=== PATIENT | male | born 1955 | race Caucasian/White ===

== ENCOUNTER 2016-07-22 03:26 | Inpatient (IN) | payer SELFPAY ==
[2016-07-22] VITALS (37 sets, daily range): BP systolic 130–196; BP diastolic 55–116; PULSE 80–119; RESP 18–32; TEMP 97.5–103; O2SAT 92–100
[~2016-07-22] VITALS: Ht 195.6 cm; Wt 154.2 kg
[2016-07-22] MEDS ORDERED: NITROGLYCERIN-DEXTROSE INJ 250 ML IV ONE (03:30)
[2016-07-22] MEDS ORDERED: SODIUM CHLORIDE 0.9% FLUSH 10 ML FLUSH IVF PRN (03:30)
[2016-07-22 03:53] LABS: AUTOMATED NEUTROPHIL # 14.3 TH/MM3 (1.8-7.7); BASOPHIL % 0.2 % (0.0-2.0); EOSINOPHIL # 0.1 TH/MM3 (0-0.4); EOSINOPHIL % 0.6 % (0.0-4.0); HEMO FLAGS DIFF FINAL; LYMPH % 6.2 % (9.0-44.0); MEAN CELL VOLUME 82.9 FL (80.0-100.0); MEAN CORPUSCULAR HEMOGLOBIN 26.2 PG (27.0-34.0); MEAN CORPUSCULAR HGB CONC 31.6 % (32.0-36.0); MONO % 4.5 % (0.0-8.0); NEUT % 88.5 % (16.0-70.0); PLATELET COUNT 182 TH/MM3 (150-450); RED BLOOD COUNT 4.83 MIL/MM3 (4.50-5.90); RED CELL DISTRIBUTION WIDTH 17.9 % (11.6-17.2); WHITE BLOOD COUNT 16.2 TH/MM3 (4.0-11.0)
[2016-07-22 04:07] LABS: ALT (GPT) 26 U/L (12-78); ANION GAP 10 MEQ/L (5-15); AST (GOT) 23 U/L (15-37); BICARBONATE 24.9 MEQ/L (21.0-32.0); BLOOD UREA NITROGEN 15 MG/DL (7-18); CHLORIDE 107 MEQ/L (98-107); GLOMERULAR FILTRATION RATE 60 ML/MIN (>89); MAGNESIUM 1.9 MG/DL (1.5-2.5); POTASSIUM 3.8 MEQ/L (3.5-5.1); SODIUM (NA) 142 MEQ/L (136-145)
[2016-07-22 04:10] LABS: APTT (PATIENT) 28.2 SEC (24.3-30.1); INTERNATIONAL NORMALIZED RATIO 1.1 RATIO; PROTHROMBIN TIME - PATIENT 11.7 SEC (9.8-11.6)
[2016-07-22 04:11] LABS: ALKALINE PHOSPHATASE 90 U/L (45-117); CREATINE KINASE 158 U/L (39-308); TOTAL BILIRUBIN ADULT 0.5 MG/DL (0.2-1.0)
[2016-07-22] MEDS ORDERED: cefTRIAXone INJ 1,000 MG in SODIUM CHLORIDE 0.9% INJ 100 ML IV ONE (04:15)
[2016-07-22] MEDS ORDERED: ACETAMINOPHEN 325 MG TAB PO ONE (04:15)
[2016-07-22] MEDS ORDERED: AZITHROMYCIN INJ 500 MG in SODIUM CHLOR 0.9% 250 ML INJ 250 ML IV ONE (04:15)
--- NOTE | 2016-07-22 04:20 | RADRPT ---
EXAM DATE/TIME: 07/22/2016 03:42 [place] COMPARISON: No previous studies available for comparison. INDICATIONS : Short of breath. MEDICAL HISTORY : None. SURGICAL HISTORY : None. ENCOUNTER: Initial ACUITY: 1 day PAIN SCORE: 6/10 LOCATION: Bilateral chest FINDINGS: Heart size enlarged. There is some vascular indistinctness and interstitial prominence which may repr esent mild interstitial edema. There is no pleural effusion. No pneumothorax. CONCLUSION: 1. Cardiomegaly with questionable early changes of pulmonary edema. Yvan Bower MD on July 22, 2016 at 4:15 Board Certified Radiologist. This report was verified electronically.
[2016-07-22 04:23] LABS: CKMB 1.3 NG/ML (0.5-3.6)
--- NOTE | 2016-07-22 04:39 | PD ---
HPI Chief Complaint: Respiratory Distress Time Seen by Provider: 03:29 Travel History International Travel<30 days: No Contact w/Intl Traveler<30days: No Traveled to known affect area: No History of Present Illness HPI 61 yo M arrives by EMS due to shortness of breath. he's also had bilateral lower extremity edema. On scene his O2 sat was 80% on room air. EMS applied BiPAP and it increased to the mid 90s. Rales are heard on scene. Heart rate was about 120. Blood pressure was approximately 220/100. Sublingual nitroglycerin was given along with Lasix 100 mg en route. Patient carries no history of CHF to his knowledge. Pt denies CP. PFSH Past Medical History Immunizations Current: Yes Tetanus Vaccination: Unknown Influenza Vaccination: No Social History Alcohol Use: No Tobacco Use: No Substance Use: No Allergies-Medications (Allergen,Severity, Reaction): Coded Allergies: No Known Allergies (Unverified , 07/22/16) Reported Meds & Prescriptions Reported Meds & Active Scripts Active No Active Prescriptions or Reported Medications Review of Systems Except as stated in HPI: all other systems reviewed are Neg General / Constitutional: Positive: Fever Physical Exam Narrative GENERAL: 61 yo M, moderate resp distress SKIN: Focused skin assessment warm/dry. HEAD: Atraumatic. Normocephalic. EYES: Pupils equal and round. No scleral icterus. No injection or drainage. ENT: No nasal bleeding or discharge. Mucous membranes pink and moist. NECK: Trachea midline. No JVD. CARDIOVASCULAR: Tachycardia. Regular. RESPIRATORY: Tachypnea. Rales bilaterally. BiPAP present. GASTROINTESTINAL: Abdomen soft, non-tender, nondistended. Hepatic and splenic margins not palpable. MUSCULOSKELETAL: No obvious deformities. No clubbing. No cyanosis. 2+ pitting edema bilateral lower extremities. NEUROLOGICAL: Awake and alert. No obvious cranial nerve deficits. Motor grossly within normal limits. Normal speech. PSYCHIATRIC: Appropriate mood and affect; insight and judgment normal. Data Data Last Documented VS Vital Signs Date Time Temp Pulse Resp B/P Pulse Ox O2 Delivery O2 Flow Rate FiO2 07/22/16 04:12 104 149/83 07/22/16 04:07 24 99 BiPAP 07/22/16 03:30 101.3 07/22/16 03:20 100 VS reviewed Orders Complete Blood Count With Diff (07/22/16 03:29) Comprehensive Metabolic Panel (07/22/16 03:29) B-Type Natriuretic Peptide (07/22/16 03:29) Act Partial Throm Time (Ptt) (07/22/16 03:29) Prothrombin Time / Inr (Pt) (07/22/16 03:29) Magnesium (Mg) (07/22/16 03:29) Ckmb (Isoenzyme) Profile (07/22/16 03:29) Troponin I (07/22/16 03:29) Iv Access Insert/Monitor (07/22/16 03:29) Electrocardiogram (07/22/16 03:29) Ecg Monitoring (07/22/16 03:29) Oximetry (07/22/16 03:29) Oxygen Administration (07/22/16 03:29) Chest, Single Ap (07/22/16 03:29) Sodium Chloride 0.9% Flush (Ns Flush) (07/22/16 03:30) Resp Bipap / Cpap Non Invas Vt (07/22/16 03:29) Nitroglycerin-Dextrose Inj (Nitroglyceri (07/22/16 03:30) CKMB (07/22/16 03:40) CKMB% (07/22/16 03:40) Acetaminophen (Tylenol) (07/22/16 04:15) Blood Culture (07/22/16 04:13) Ceftriaxone Inj (Rocephin Inj) (07/22/16 04:15) Azithromycin Inj (Zithromax Inj) (07/22/16 04:15) Labs Laboratory Tests Test 07/22/16 03:40 White Blood Count 16.2 TH/MM3 Red Blood Count 4.83 MIL/MM3 Hemoglobin 12.7 GM/DL Hematocrit 40.0 % Mean Corpuscular Volume 82.9 FL Mean Corpuscular Hemoglobin 26.2 PG Mean Corpuscular Hemoglobin 31.6 % Concent Red Cell Distribution Width 17.9 % Platelet Count 182 TH/MM3 Mean Platelet Volume 8.3 FL Neutrophils (%) (Auto) 88.5 % Lymphocytes (%) (Auto) 6.2 % Monocytes (%) (Auto) 4.5 % Eosinophils (%) (Auto) 0.6 % Basophils (%) (Auto) 0.2 % Neutrophils # (Auto) 14.3 TH/MM3 Lymphocytes # (Auto) 1.0 TH/MM3 Monocytes # (Auto) 0.7 TH/MM3 Eosinophils # (Auto) 0.1 TH/MM3 Basophils # (Auto) 0.0 TH/MM3 CBC Comment DIFF FINAL Differential Comment Prothrombin Time 11.7 SEC Prothromb Time International 1.1 RATIO Ratio Activated Partial 28.2 SEC Thromboplast Time Sodium Level 142 MEQ/L Potassium Level 3.8 MEQ/L Chloride Level 107 MEQ/L Carbon Dioxide Level 24.9 MEQ/L Anion Gap 10 MEQ/L Blood Urea Nitrogen 15 MG/DL Creatinine 1.22 MG/DL Estimat Glomerular Filtration 60 ML/MIN Rate Random Glucose 122 MG/DL Calcium Level 8.4 MG/DL Magnesium Level 1.9 MG/DL Total Bilirubin 0.5 MG/DL Aspartate Amino Transf 23 U/L (AST/SGOT) Alanine Aminotransferase 26 U/L (ALT/SGPT) Alkaline Phosphatase 90 U/L Total Creatine Kinase 158 U/L Creatine Kinase MB 1.3 NG/ML Troponin I 0.04 NG/ML Total Protein 7.7 GM/DL Albumin 3.7 GM/DL [facility] Medical Decision Making Medical Screen Exam Complete: Yes Emergency Medical Condition: Yes Medical Record Reviewed: Yes Differential Diagnosis Pneumonia, COPD exacerbation, CHF exacerbation, coronary artery disease, sepsis Narrative Course EKG reveals a sinus tachycardia with a rate of 126 CBC & BMP Diagram 07/22/16 03:40 LFTs normal Tn 0.03 Coags 1.1 Last 24 hours Impressions Chest X-Ray 07/22/16 0329 Signed Impressions: Service Date/Time: Friday, July 22, 2016 03:42 - CONCLUSION: 1. Cardiomegaly with questionable early changes of pulmonary edema. Yvan Bower MD Nitro gtt started. BP down to 140s/90s with HR approx 100. Speaking full sentences at 415am. Admission for CHF exacerbation with probable pneumonia. d/w Dr Cochran. Diagnosis Primary Impression: CHF (congestive heart failure) Qualified Code: I50.9 - Congestive heart failure, unspecified congestive heart failure chronicity, unspecified congestive heart failure type Additional Impression: PNA (pneumonia) Qualified Code: J18.9 - Pneumonia of both lungs due to infectious organism, unspecified part of lung Admitting Information Admitting Physician Requests: Admit Scripts No Active Prescriptions or Reported Meds Karthik Young MD July 22, 2016 04:38
[2016-07-22] MEDS ORDERED: RESP: ALBUTEROL 2.5 MG/IPRATROPIUM 0.5 MG NEB (PRN) NEB (04:45)
[2016-07-22] MEDS ORDERED: ONDANSETRON HCL 4 MG/2 ML VIAL IVP PRN (04:45)
[2016-07-22] MEDS ORDERED: ACETAMINOPHEN/HYDROcodone 325 MG/5 MG TAB PO PRN (04:45)
[2016-07-22] MEDS ORDERED: SODIUM CHLORIDE 0.9% FLUSH 10 ML FLUSH IV FLUSH PRN (04:45)
[2016-07-22] MEDS ORDERED: BISACODYL 10 MG SUPP RECTAL PRN (04:45)
[2016-07-22] MEDS ORDERED: MORPHINE SULFATE 4 MG/ML INJ IV PRN (04:45)
--- NOTE | 2016-07-22 05:05 | HHI.HP ---
[facility] Service [facility] Primary Care Physician No Primary Care Physician Admission Diagnosis CHF, PNA Diagnoses: (1) CHF (congestive heart failure) Diagnosis: Principal (2) PNA (pneumonia) Diagnosis: Principal (3) Dehydration Diagnosis: Principal (4) Hypoxia Diagnosis: Principal (5) HTN (hypertension) Diagnosis: Principal Travel History International Travel<30 Days: No Contact w/Intl Traveler <30 Da: No Traveled to Known Affected Are: No History of Present Illness This is a 61-year-old male with no reported PMH as he does not follow with physicians who was brought to the ER by EMS secondary to SOB, noted to have O2 sat 80% on RA upon EMS arrival. Started on CPAP and given Lasix IV en route to ER w/ some improvement. On arrival, BP 196/116, HR 119, O2 sat 99% on BiPAP, Temp 101.3. WBC 16.2. Chemistry essentially unremarkable except for GFR 60. BNP 451. INR 1.1. CXR with cardiomegaly, questionable early changes of pulmonary edema, also noted to have some likely infiltrate. Started on Nitro gtt for BP control, remains on BIPAP, good urinary output after diuresis. S/p Blood Cultures, Rocephin/Zithro in ER. Review of Systems Except as stated in HPI: all other systems reviewed are Neg ROS: 14 point review of systems otherwise negative. Past Family Social History Past Medical History PMH: None Past Surgical History PAST SURGICAL HISTORY: None Allergies: Coded Allergies: No Known Allergies (Unverified , 07/22/16) Family History PAST FAMILY HISTORY: Reviewed. No h/o DM or CAD Social History PAST SOCIAL HISTORY: Negative for alcohol, tobacco or drugs. Physical Exam Vital Signs Vital Signs Date Time Temp Pulse Resp B/P Pulse Ox O2 Delivery O2 Flow Rate FiO2 07/22/16 04:50 96 22 141/79 99 BiPAP 07/22/16 04:41 100 148/83 07/22/16 04:12 104 149/83 07/22/16 04:07 104 24 146/70 99 BiPAP 07/22/16 04:02 108 24 145/67 99 BiPAP 07/22/16 03:57 108 160/74 07/22/16 03:52 107 28 178/89 99 BiPAP 07/22/16 03:39 99 BiPAP 07/22/16 03:39 32 07/22/16 03:33 119 32 99 BiPAP 07/22/16 03:30 101.3 119 32 196/116 99 07/22/16 03:20 100 100 Physical Exam PE: GENERAL: Middle-aged male in no acute distress. Currently on BIPAP. HEENT: PERRLA, EOMI. No scleral icterus or conjunctival pallor. No lid lag or facial droop. CARDIOVASCULAR: Regular rate and rhythm. No obvious murmurs to auscultation. No chest tenderness to palpation. RESPIRATORY: No obvious rhonchi or wheezing. Clear to auscultation. Mildly decreased at bases bilaterally. GASTROINTESTINAL: Abdomen soft, non-tender, nondistended. BS normal. MUSCULOSKELETAL: Extremities without clubbing, cyanosis. +2 pitting edema bilaterally. No obvious deformities. NEUROLOGICAL: Awake, alert and oriented x4. No focal neurologic deficits. Moving both upper and lower extremities spontaneously. Laboratory Laboratory Tests Test 07/22/16 03:40 White Blood Count 16.2 Red Blood Count 4.83 Hemoglobin 12.7 Hematocrit 40.0 Mean Corpuscular Volume 82.9 Mean Corpuscular Hemoglobin 26.2 Mean Corpuscular Hemoglobin 31.6 Concent Red Cell Distribution Width 17.9 Platelet Count 182 Mean Platelet Volume 8.3 Neutrophils (%) (Auto) 88.5 Lymphocytes (%) (Auto) 6.2 Monocytes (%) (Auto) 4.5 Eosinophils (%) (Auto) 0.6 Basophils (%) (Auto) 0.2 Neutrophils # (Auto) 14.3 Lymphocytes # (Auto) 1.0 Monocytes # (Auto) 0.7 Eosinophils # (Auto) 0.1 Basophils # (Auto) 0.0 CBC Comment DIFF FINAL Differential Comment Prothrombin Time 11.7 Prothromb Time International 1.1 Ratio Activated Partial 28.2 Thromboplast Time Sodium Level 142 Potassium Level 3.8 Chloride Level 107 Carbon Dioxide Level 24.9 Anion Gap 10 Blood Urea Nitrogen 15 Creatinine 1.22 Estimat Glomerular Filtration 60 Rate Random Glucose 122 Calcium Level 8.4 Magnesium Level 1.9 Total Bilirubin 0.5 Aspartate Amino Transf 23 (AST/SGOT) Alanine Aminotransferase 26 (ALT/SGPT) Alkaline Phosphatase 90 Total Creatine Kinase 158 Creatine Kinase MB 1.3 Troponin I 0.04 B-Type Natriuretic Peptide 451 Total Protein 7.7 Albumin 3.7 Date/Time Procedure Status Source Growth 07/22/16 04:20 Aerobic Blood Culture Received Blood Peripheral Pending 07/22/16 04:20 Anaerobic Blood Culture Received Blood Peripheral Pending Result Diagram: 07/22/1633907/22/16339 Assessment and Plan Problem List: (1) CHF (congestive heart failure) ICD Code: I50.9 Status: Acute (2) PNA (pneumonia) ICD Code: J18.9 Status: Acute (3) Hypoxia ICD Code: R09.02 Status: Acute (4) Dehydration ICD Code: E86.0 Status: Acute (5) HTN (hypertension) ICD Code: I10 Status: Acute Assessment and Plan A/P: 1. CHF: Acute. Unknown if systolic or diastolic. BNP 451, CXR w/ pulmonary edema, images reviewed by me. S/p Lasix IV by EMS en route to ER, good diuresis , monitor I/O. Check Echo to eval for systolic function. 2. PNA: CXR w/ pulmonary edema, likely underlying pulmonary infiltrates, images reviewed by me. +Febrile, +leukocytosis. S/p Blood Cultures, Rocephin/ Zithro in ER. Follow up cultures, continue w/ IV Abx. DuoNeb prn. 3. Hypoxia: Multifactorial-secondary to Acute CHF and PNA. O2 sat 80% upon EMS arrival, currently 100% on BIPAP, will wean as tolerated. 4. HTN: Uncontrolled. BP 196/116, HR 119, on Nitro gtt, BP currently 141/79, HR 96. Will monitor, continue telemetry. 5. Dehydration: GFR 60, BUN/Creatinine normal, will monitor for now in light of Acute CHF. Repeat labs in am. 6. DVT Prophylaxis: SCD/Teds. 7. Social work for d/c planning as needed. 8. Case discussed w/ ER physician at length. Physician Certification 2 Midnight Certification Type: Admission for Inpatient Services Order for Inpatient Services The services are ordered in accordance with Medicare regulations or non- Medicare payer requirements, as applicable. In the case of services not specified as inpatient-only, they are appropriately provided as inpatient services in accordance with the 2-midnight benchmark. Estimated LOS (days): 2 days is the estimated time the patient will need to remain in the hospital, assuming treatment plan goals are met and no additional complications. Post-Hospital Plan: Not yet determined Problem Qualifiers (1) CHF (congestive heart failure): Qualified Code: I50.9 - Congestive heart failure, unspecified congestive heart failure chronicity, unspecified congestive heart failure type (2) PNA (pneumonia): Qualified Code: J18.9 - Pneumonia of both lungs due to infectious organism, unspecified part of lung Jonelle Cochran MD July 22, 2016 05:05
--- NOTE | 2016-07-22 08:02 | HHI.PR ---
Subjective Remarks patient feeling much better- now currently ion BiPAP 60%, SR on telemetry 3 weeks duration of shortness of breath leg swelling, orthopnea- seen at [facility] ER- sent home with some prescriptions not filled- called EMS with increasing SOB per ER/EMS report- in acute distress- placed on BiPAP- given 100 mg IV Lasix Objective Vitals Vital Signs Date Time Temp Pulse Resp B/P Pulse Ox O2 Delivery O2 Flow Rate FiO2 07/22/16 06:22 92 60 07/22/16 05:54 99 60 07/22/16 05:51 22 07/22/16 05:45 99.6 92 22 142/78 99 BiPAP 07/22/16 05:33 99 70 07/22/16 05:17 94 22 145/78 99 BiPAP 07/22/16 05:11 94 140/78 07/22/16 05:01 94 142/82 07/22/16 04:50 96 22 141/79 99 BiPAP 07/22/16 04:41 100 148/83 07/22/16 04:12 104 149/83 07/22/16 04:07 104 24 146/70 99 BiPAP 07/22/16 04:02 108 24 145/67 99 BiPAP 07/22/16 03:57 108 160/74 07/22/16 03:52 107 28 178/89 99 BiPAP 07/22/16 03:39 99 BiPAP 07/22/16 03:39 32 07/22/16 03:33 119 32 99 BiPAP 07/22/16 03:30 101.3 119 32 196/116 99 07/22/16 03:20 100 100 I/O 07/21/16 07/21/16 07/21/16 07/22/16 07/22/16 07/22/16 07:00 15:00 23:00 07:00 15:00 23:00 Output Total 1300 ml Balance -1300 ml Output Urine Total 1300 ml Result Diagram: 07/22/16 03407/22/16 0340 Imaging Last Impressions Chest X-Ray 07/22/16 0329 Signed Impressions: Service Date/Time: Friday, July 22, 2016 03:42 - CONCLUSION: 1. Cardiomegaly with questionable early changes of pulmonary edema. Yvan Bower MD Objective Remarks awake and alert, oriented x 3, eeling better, no acute distress both yes- injected conjunctivae with some pus left more than right lungs decrease breath sounds, very minimal basal rales regular rhythm abdomen- flabby soft, good bowel sounds no scrotal swelling ++ edema neuro exam non focal A/P Problem List: (1) CHF (congestive heart failure) ICD Code: I50.9 Status: Acute (2) PNA (pneumonia) ICD Code: J18.9 Status: Acute (3) Hypoxia ICD Code: R09.02 Status: Acute (4) Dehydration ICD Code: E86.0 Status: Acute (5) HTN (hypertension) ICD Code: I10 Status: Acute Assessment and Plan 61 years old male obese - denies chronic medical illness, non smoker with 2-3 weeks new onset on shortness of breath and leg swelling, orthopnea- was seen at [facility] ER about that time and sent home with inhalers and scripts- not filled, sounds like they ruled him out for DVT and was given some IV meds that "peed a lot" called EMS with difficulty breathing- - per report with diffuse rales, hypoxemic - placed on BiPAP, Lasix 100 mg IV initial EKG- sinus tachycardia Acute respiratory failure with hypoxemia secondary to acute pulmonary edema- received Lasix 100 mg IV enroute by EMS- good response with diuresis - need to r /o underlying ischemia Hypertensive urgency presenting with acute Pulmonary edema- patient denies history of hypertension, DM or chronic medical illness initial !2 LEKG- showed sinus tachycardia LVH, LAD . CXR reviewed by me. repeat EKG now- sinus HR 80 start Lasix 20 mg IV q12, start po KCL- give 30 meq po x 1 now then 20 meq daily Wean off Nitro drip.- start po - ISMO DC Bipap- change to NC 4 L- ff Sats Start Miguel- Enalapril 5 mg po daily, ASA. Clonidine 0.1 mg po q 6 prn for SBP >160 2D echo ordered. ff troponin Cardiology consult- work up for new onset CHF- will defer to subspecialty whether to proceed with myocardial perfusion or cath to r/o underlying ischemia Sepsis - PNA: CXR w/ pulmonary edema, likely underlying pulmonary infiltrates +Febrile, +leukocytosis. S/p Blood Cultures, Rocephin/Zithro, Follow up cultures, continue w/ IV Abx. DuoNeb prn. GIA- monitor BMP on diuretics and MIGUEL. I and O monitoring Acute conjunctivitis- OU Antibacterial eye drops Obesity - BMI 41., counselled on weight reduction . check lipid panel Lovenox at DVT prophylaxis dose Problem Qualifiers (1) CHF (congestive heart failure): Qualified Code: I50.9 - Congestive heart failure, unspecified congestive heart failure chronicity, unspecified congestive heart failure type (2) PNA (pneumonia): Qualified Code: J18.9 - Pneumonia of both lungs due to infectious organism, unspecified part of lung Kameron Richey MD July 22, 2016 08:02
[2016-07-22] MEDS ORDERED: ISOSORBIDE MONONITRATE 30 MG TAB PO SCH (09:00)
[2016-07-22] MEDS ORDERED: ENALAPRIL MALEATE 5 MG TAB PO SCH (09:00)
[2016-07-22] MEDS: SODIUM CHLORIDE 0.9% FLUSH 10 ML FLUSH IV FLUSH SCH ×2 (09:00→21:42)
[2016-07-22] MEDS ORDERED: POTASSIUM CHLORIDE 10 MEQ CONTROLLED RELEASE TAB PO ONE (09:00)
[2016-07-22] MEDS ORDERED: CARVEDILOL 12.5 MG TAB PO SCH (09:00)
[2016-07-22] MEDS: guaiFENesin E.R. 600 MG TAB PO SCH ×2 (09:10→21:41)
[2016-07-22] MEDS: ASPIRIN 81 MG CHEW TAB CHEW SCH (09:10)
[2016-07-22] MEDS: ENOXAPARIN SODIUM 40 MG/0.4 ML SYRINGE SQ SCH (09:10)
[2016-07-22] MEDS: BUDESONIDE-FORMOTEROL 160/4.5 MCG INHALER INH SCH ×2 (09:30→21:42)
[2016-07-22] MEDS: GENTAMICIN SULFATE 0.3% OPHT SOLN 5 ML BTL EACH EYE SCH ×4 (09:30→21:42)
[2016-07-22] MEDS: CARVEDILOL 6.25 MG TAB PO SCH ×2 (14:05→21:41)
[2016-07-22] MEDS: cloNIDine HCL 0.1 MG TAB PO PRN ×2 (14:05→21:41)
--- NOTE | 2016-07-22 14:30 | MB ---
cc: JANINE RAINEY MD DATE OF CONSULTATION: 07/22/2016 REASON FOR CONSULTATION Hypertensive crisis with CHF. HISTORY OF PRESENT ILLNESS Mr. Cardenas is a 61-year-old man who denies any prior medical history. He reports that he had progressive shortness of breath and was not able to lay flat. The records indicate that the patient presented with a saturation of 80% on room air and he was started on CPAP and Lasix. His initial vitals showed a BP of 196/116 with a heart rate of 119 and a temp of 101.3. He was seen at [facility] and diagnosed with bronchitis. He felt fine the next day so he did not fill the prescription for antibiotics. He notes that he is feeling much better today. PAST MEDICAL HISTORY The patient denies any hypertension, hyperlipidemia or diabetes. ALLERGIES NO KNOWN DRUG ALLERGIES. OUTPATIENT MEDICATIONS None. FAMILY HISTORY The patient denies any history of coronary disease or diabetes. SOCIAL HISTORY The patient denies any alcohol, tobacco or illicit drug use. REVIEW OF SYSTEMS Except as mentioned in HPI, all 12 systems are negative. PHYSICAL EXAMINATION VITAL SIGNS: 99.1, 80, 92, 18, 155/90. GENERAL: He is a morbidly obese man who is in no apparent distress. NECK: His neck is free from JVD. LUNGS: The lungs are bilaterally clear to auscultation. CARDIOVASCULAR: On cardiovascular examination, he has a normal S1 and S2. I did not appreciate any murmurs, rubs or gallops. ABDOMEN: The abdomen is soft. EXTREMITIES: The extremities are free from edema. LABORATORY FINDINGS Significant for a white count of 16.2, his creatinine is 1.22, serial troponins are 0.04/0.06 with a BNP of 451. IMAGING Chest x-ray does show cardiomegaly with questionable changes of early pulmonary edema. IMPRESSIONS Hypertensive crisis - the patient certainly had hypertension, some pulmonary edema. He has responded nicely to the previously stated therapy. He does remain somewhat hypertensive on a nitro drip. At this point, I would certainly titrate up his enalapril. I do not see any real indication for the isosorbide. I am going to add some Coreg as he has likely had some heart failure. Acute diastolic failure - likely secondary to hypertension - as above we will adjust meds for his blood pressure. Fluid and sodium restrictions will be discussed. Further evaluation with a nuclear stress test is likely once we get him off of the IV nitro with reasonable blood pressure control. Coco Pedersen/BJF /1:18 PM /2:05 PM
[2016-07-22] MEDS ORDERED: LISINOPRIL 5 MG TAB PO ONE (15:00)
[2016-07-22] MEDS: ACETAMINOPHEN 325 MG TAB PO PRN ×2 (15:11→21:41)
--- NOTE | 2016-07-22 15:32 | EC ---
Study Study Date:07/22/2016 STUDY CONCLUSIONS SUMMARY - Left ventricle: The cavity size was normal. Wall thickness was increased in a pattern of moderate LVH. Systolic function was moderately reduced. The estimated ejection fraction was in the range of 35% to 40%. Diffuse hypokinesis. - Aortic valve: Valve area: 2.44cm^2 (Vmax). - Aorta: The aorta was moderately dilated. - Mitral valve: Mild regurgitation. - Left atrium: The atrium was mildly dilated. If LV function is below 40, please consider prescribing an ACEI or ARB or document rationale for non-use. PROCEDURE DATA STUDY STATUS: Elective. Procedure: Transthoracic echocardiography. Image quality was poor. Scanning was performed from the parasternal, apical, and subcostal acoustic windows. Study completion: The patient tolerated the procedure well. Transthoracic echocardiography. M-mode, complete 2D, complete spectral Doppler, and color Doppler. Height: Height: 74in. Weight: Weight: 340.3lb. Body mass index: BMI: 43.8kg/m^2. Body surface area: BSA: 2.73m^2. Patient status: Inpatient. CARDIAC ANATOMY LEFT VENTRICLE: The cavity size was normal. Wall thickness was increased in a pattern of moderate LVH. Systolic function was moderately reduced. The estimated ejection fraction was in the range of 35% to 40%. Diffuse hypokinesis. AORTIC VALVE: Trileaflet; normal thickness leaflets. Doppler: Transvalvular velocity was within the normal range. There was no stenosis. No regurgitation. Valve area: 2.44cm^2 (Vmax). Indexed valve area: 0.89cm^2/m^2 (Vmax). Peak gradient: 13mm Hg (S). AORTA: The aorta was moderately dilated. Aortic root: The aortic root was normal in size. MITRAL VALVE: Structurally normal valve. Doppler: Transvalvular velocity was within the normal range. There was no evidence for stenosis. Mild regurgitation. Valve area by pressure half-time: 3.86cm^2. Indexed valve area by pressure half-time: 1.41cm^2/m^2. Peak gradient: 5mm Hg (D). LEFT ATRIUM: The atrium was mildly dilated. RIGHT VENTRICLE: The cavity size was normal. Wall thickness was normal. PULMONIC VALVE: Doppler: Transvalvular velocity was within the normal range. There was no evidence for stenosis. No regurgitation. TRICUSPID VALVE: Structurally normal valve. Doppler: Transvalvular velocity was within the normal range. Trace regurgitation. Peak gradient: 22mm Hg (D). PULMONARY ARTERY: The main pulmonary artery was normal-sized. Systolic pressure was within the normal range. RIGHT ATRIUM: The atrium was normal in size. PERICARDIUM: There was no pericardial effusion. SYSTEMIC VEINS: Inferior vena cava: The vessel was normal in size. Patient weight: 340.3lb _Ejection fraction:_ 65-75% _Fractional shortening:_ 32% up to 5Kg 5-11.5Kg 11.6-22.9Kg 23-45Kg 45-57Kg Aortic Root 7-13 <17 13-22 17-27 17-27 LA diam 6-13 <23 24-38 33-47 37-40 RVID 10-17 7-15 7-15 7-18 8-17 LVIDd 12-22 <32 24-38 33-47 37-40 LVPW 2-4 3-6 5-7 6-8 7-8 IVS 2-4 3-6 5-7 6-8 7-8 BASIC MEASUREMENTS ADULT NORMAL Left ventricle LV internal dimension, ED, chordal *62.1 mm 43-52 level, PLAX LV internal dimension, ES, chordal *49.6 mm 23-38 level, PLAX Fractional shortening, chordal level, *20 % >29 PLAX LV posterior wall thickness, ED 21.3 mm IVS/LVPW ratio, ED 1 <1.3 Volume, ED, MOD, 1-plane 346 ml Volume, ES, MOD, 1-plane 223 ml Ejection fraction, MOD, 1-plane 36 % Stroke volume, MOD, 1-plane 123 ml Volume index, ED, MOD, 1-plane 127 ml/m^2 Volume index, ES, MOD, 1-plane 82 ml/m^2 Stroke index, MOD, 1-plane 45.1 ml/m^2 Ventricular septum Septal thickness, ED 21.3 mm Aortic valve Leaflet separation 25 mm 15-26 Left atrium Anterior-posterior dimension 47 mm Anterior-posterior dimension index 1.72 cm/m^2 <2.2 Right ventricle RV internal dimension, ED, PLAX *38.4 mm 19-38 BASIC MEASUREMENTS ADULT NORMAL Aortic valve Leaflet separation 25 mm 15-26 Aorta Root diameter, ED *40 mm 20-37 Left atrium Anterior-posterior dimension, ES *46 mm 19-40 Anterior-posterior dimension index, ES 1.68 cm/m^2 <2.2 LA/aortic root ratio 1.15 DOPPLER MEASUREMENTS ADULT NORMAL Aortic valve Peak velocity, S 179 cm/s Peak gradient, S 13 mm Hg Valve area, Vmax 2.44 cm^2 Valve area index, Vmax 0.89 cm^2/m^2 Mitral valve Peak E-wave velocity 115 cm/s Peak A-wave velocity 77.5 cm/s Pressure half-time 57 ms Peak gradient, D 5 mm Hg Peak E/A ratio 1.5 Valve area, pressure half-time 3.86 cm^2 Valve area index, pressure half-time 1.41 cm^2/m^2 Tricuspid valve Peak gradient, D 22 mm Hg Maximal inflow velocity 237 cm/s Pulmonic valve Peak velocity, S 134 cm/s Acceleration time 261 ms LEGEND: Mean values are shown as u=mean value. Asterisk (*) rodriguez values outside specified normal range. Prepared and signed by Nannette Wen [id number]
--- NOTE | 2016-07-22 16:33 | EKG ---
Date Performed: 07/22/2016 Time Performed: 03:33:08 PTAGE: 61 years EKG: SINUS TACHYCARDIA LEFT VENTRICULAR HYPERTROPHY AND ST-T CHANGE ABNORMAL ECG NO PREVIOUS TRACING DOCTOR: Nannette Wen Interpretating Date/Time 07/22/2016 16:31:21
--- NOTE | 2016-07-22 16:33 | EKG ---
Date Performed: 07/22/2016 Time Performed: 08:13:04 PTAGE: 61 years EKG: Sinus rhythm Prolonged QT interval Leftward axis IV conduction defect Left ventricular hypertrophy by voltage onl y Compared to previous tracing, the patient is no longer tachycardic Abnormal ECG PREVIOUS TRACING : 07/22/2016 03.33 DOCTOR: Nannette Wen Interpretating Date/Time 07/22/2016 16:31:40
[2016-07-22 17:19] LABS: BICARBONATE 26.8 MEQ/L (21.0-32.0); POTASSIUM 3.8 MEQ/L (3.5-5.1)
[2016-07-22 17:30] LABS: HDL CHOLESTEROL 27.6 MG/DL (40.0-60.0)
[2016-07-22] MEDS ORDERED: FUROSEMIDE 20 MG/2 ML VIAL IV PUSH SCH (18:00)
[2016-07-22] MEDS: LISINOPRIL 10 MG TAB PO SCH (21:41)
[2016-07-22 23:07] LABS: BLOOD, URINE LARGE (NEG); COMMENT (UR) CULT NOT INDICATED; CULTURE IF INDICATED CULT NOT INDICATED; GLUCOSE,URINE NEG (NEG); KETONE, URINE NEG (NEG); MUCUS URINE FEW /lpf (OCC); NITRITE,URINE NEG (NEG); PH, URINE 5.5 (5.0-8.5); SQUAMOUS EPITHELIAL CELL URINE <1 /hpf (0-5); URINE COLOR YELLOW (YELLW/STRAW)
[2016-07-23] VITALS (28 sets, daily range): BP systolic 142–159; BP diastolic 72–89; PULSE 68–77; RESP 18–20; TEMP 98.1–99; O2SAT 94–95
[2016-07-23] MEDS: GENTAMICIN SULFATE 0.3% OPHT SOLN 5 ML BTL EACH EYE SCH ×7 (00:42→23:49)
[2016-07-23] MEDS: AZITHROMYCIN INJ 500 MG in SODIUM CHLOR 0.9% 250 ML INJ 250 ML IV SCH (04:59)
[2016-07-23] MEDS: cefTRIAXone INJ 1,000 MG in SODIUM CHLORIDE 0.9% INJ 100 ML IV SCH (06:02)
[2016-07-23] MEDS: ASPIRIN 81 MG CHEW TAB CHEW SCH (08:20)
[2016-07-23] MEDS: guaiFENesin E.R. 600 MG TAB PO SCH ×2 (08:21→20:34)
[2016-07-23] MEDS: ENOXAPARIN SODIUM 40 MG/0.4 ML SYRINGE SQ SCH (08:21)
[2016-07-23] MEDS: SODIUM CHLORIDE 0.9% FLUSH 10 ML FLUSH IV FLUSH SCH ×2 (08:21→20:35)
[2016-07-23] MEDS: LISINOPRIL 10 MG TAB PO SCH ×2 (08:21→20:36)
[2016-07-23] MEDS: CARVEDILOL 6.25 MG TAB PO SCH ×2 (08:21→20:34)
[2016-07-23] MEDS: BUDESONIDE-FORMOTEROL 160/4.5 MCG INHALER INH SCH ×2 (08:21→20:35)
--- NOTE | 2016-07-23 08:24 | HHI.PR ---
Subjective Remarks breathing much better - had a good night no cough, no urinary symptoms, no diarrhea no eye pain intermittent fever last night Objective Vitals Vital Signs Date Time Temp Pulse Resp B/P Pulse Ox O2 Delivery O2 Flow Rate FiO2 07/23/16 06:26 70 07/23/16 05:10 74 07/23/16 04:36 73 07/23/16 03:44 71 07/23/16 03:00 95 Room Air 07/23/16 03:00 98.9 77 20 144/72 95 07/23/16 02:17 70 07/23/16 01:11 71 07/23/16 00:00 75 07/22/16 23:16 92 Room Air 07/22/16 23:16 80 07/22/16 23:16 101.8 83 20 138/55 92 07/22/16 22:00 92 07/22/16 21:00 92 07/22/16 20:15 102.8 93 18 168/81 92 07/22/16 20:15 92 Room Air 07/22/16 20:15 87 07/22/16 18:00 84 07/22/16 17:00 82 07/22/16 16:37 102.4 07/22/16 16:00 88 07/22/16 15:10 96 Nasal Cannula 4.00 07/22/16 15:10 103.0 88 20 154/93 96 07/22/16 15:00 86 07/22/16 14:00 92 07/22/16 13:00 84 07/22/16 12:00 94 07/22/16 11:00 97 Nasal Cannula 4.00 07/22/16 11:00 92 07/22/16 11:00 99.1 80 18 155/90 97 07/22/16 10:00 94 07/22/16 09:00 100 I/O 07/22/16 07/22/16 07/22/16 07/23/16 07/23/16 07/23/16 07:00 15:00 23:00 07:00 15:00 23:00 Intake Total 720 ml 970 ml Output Total 2000 ml 650 ml 250 ml Balance -2000 ml 70 ml 720 ml Intake Oral 720 ml 720 ml IV Total 250 ml Output Urine Total 2000 ml 650 ml 250 ml # Bowel Movements 0 0 Result Diagram: 07/22/16 0340 07/22/16 1556 Imaging Last Impressions Chest X-Ray 07/22/16 032 Signed Impressions: Service Date/Time: Friday, July 22, 2016 03:42 - CONCLUSION: 1. Cardiomegaly with questionable early changes of pulmonary edema. Yvan Bower MD Objective Remarks awake and alert, oriented x 3, no acute distress OU- improved, no conjunctivae not injected lungs decrease breath sounds, no rhonchi, no wheezes regular rhythm abdomen- flabby soft, good bowel sounds no scrotal swelling + pitting edema neuro exam non focal A/P Problem List: (1) CHF (congestive heart failure) ICD Code: I50.9 Status: Acute (2) PNA (pneumonia) ICD Code: J18.9 Status: Acute (3) Hypoxia ICD Code: R09.02 Status: Acute (4) Dehydration ICD Code: E86.0 Status: Acute (5) HTN (hypertension) ICD Code: I10 Status: Acute Assessment and Plan 61 years old male obese - denies chronic medical illness, non smoker with 2-3 weeks new onset on shortness of breath and leg swelling, orthopnea- was seen at [facility] ER about that time and sent home with inhalers and scripts- not filled, sounds like they ruled him out for DVT and was given some IV meds that "peed a lot" called EMS with difficulty breathing- - per report with diffuse rales, hypoxemic - placed on BiPAP, Lasix 100 mg IV initial EKG- sinus tachycardia Acute respiratory failure with hypoxemia secondary to acute pulmonary edema - resolved- good sats at room air Acute Pulmonary edema - resolved- secondary seen by Cardiology- work up in progress On Lisinopril, coreg . FF BMP Sepsis - PNA: CXR w/ pulmonary edema, likely underlying pulmonary infiltrates +Febrile, +leukocytosis. S/p Blood Cultures, Rocephin/Zithro, Follow up cultures, continue w/ IV Abx. DuoNeb prn. recheck CBC today. FF cultures GIA- monitor BMP on diuretics and BRIANA. I and O monitoring Acute conjunctivitis- OU- improved Antibacterial eye drops Obesity - BMI 41., counselled on weight reduction Lovenox at DVT prophylaxis dose Problem Qualifiers (1) CHF (congestive heart failure): Qualified Code: I50.9 - Congestive heart failure, unspecified congestive heart failure chronicity, unspecified congestive heart failure type (2) PNA (pneumonia): Qualified Code: J18.9 - Pneumonia of both lungs due to infectious organism, unspecified part of lung Kameron Richey MD July 23, 2016 08:24 Kameron Richey MD July 23, 2016 08:24
--- NOTE | 2016-07-23 08:28 | PD.CARD.PN ---
Subjective Subjective Remarks Pt without complaints Objective Medications Current Medications Medications (Trade) Dose Ordered Sig/Fernando Route Start Time Stop Time Status Last Admin Ceftriaxone Sodium 1000 mg/ Sodium Chloride 100 ml @ 200 mls/hr Q24H IV 07/23/16 06:00 07/23/16 06:02 (Zithromax Inj/ NS 250 ml Inj) 250 ml @ 250 mls/hr Q24H IV 07/23/16 05:00 07/23/16 04:59 (Mucinex Er) 600 mg BID PO 07/22/16 09:00 07/23/16 08:21 (Symbicort 160-4.5 Inh) 2 puff Q12HR INH 07/22/16 09:00 07/23/16 08:21 (NS Flush) 2 ml UNSCH PRN IV FLUSH 07/22/16 04:45 (NS Flush) 2 ml BID IV FLUSH 07/22/16 09:00 07/23/16 08:21 (Zofran Inj) 4 mg Q6H PRN IVP 07/22/16 04:45 (Dulcolax Supp) 10 mg DAILY PRN RECTAL 07/22/16 04:45 (Tylenol) 650 mg Q6H PRN PO 07/22/16 04:45 07/22/16 21:41 ([place] 5-325 Mg) 1 tab Q4H PRN PO 07/22/16 04:45 (Morphine Inj) 2 mg Q3H PRN IV 07/22/16 04:45 (Lovenox Inj) 40 mg Q24H SQ 07/22/16 09:00 07/23/16 08:21 (Gentamicin Opht 0.3% Soln) 1 drop Q4HR EACH EYE 07/22/16 09:00 07/23/16 08:20 (Aspirin Chew) 81 mg DAILY CHEW 07/22/16 09:00 07/23/16 08:20 (Catapres) 0.1 mg Q6H PRN PO 07/22/16 13:15 07/22/16 21:41 (Prinivil) 10 mg Q12HR PO 07/22/16 21:00 07/23/16 08:21 (Coreg) 6.25 mg Q12HR PO 07/22/16 15:00 07/23/16 08:21 Vital Signs / I&O Vital Signs Date Time Temp Pulse Resp B/P Pulse Ox O2 Delivery O2 Flow Rate FiO2 07/23/16 06:26 70 07/23/16 05:10 74 07/23/16 04:36 73 07/23/16 03:44 71 07/23/16 03:00 95 Room Air 07/23/16 03:00 98.9 77 20 144/72 95 07/23/16 02:17 70 07/23/16 01:11 71 07/23/16 00:00 75 07/22/16 23:16 92 Room Air 07/22/16 23:16 80 07/22/16 23:16 101.8 83 20 138/55 92 07/22/16 22:00 92 07/22/16 21:00 92 07/22/16 20:15 102.8 93 18 168/81 92 07/22/16 20:15 92 Room Air 07/22/16 20:15 87 07/22/16 18:00 84 07/22/16 17:00 82 07/22/16 16:37 102.4 07/22/16 16:00 88 07/22/16 15:10 96 Nasal Cannula 4.00 07/22/16 15:10 103.0 88 20 154/93 96 07/22/16 15:00 86 07/22/16 14:00 92 07/22/16 13:00 84 07/22/16 12:00 94 07/22/16 11:00 97 Nasal Cannula 4.00 07/22/16 11:00 92 07/22/16 11:00 99.1 80 18 155/90 97 07/22/16 10:00 94 07/22/16 09:00 100 I/O 07/22/16 07/22/16 07/22/16 07/23/16 07/23/16 07/23/16 07:00 15:00 23:00 07:00 15:00 23:00 Intake Total 720 ml 970 ml Output Total 2000 ml 650 ml 250 ml Balance -2000 ml 70 ml 720 ml Intake Oral 720 ml 720 ml IV Total 250 ml Output Urine Total 2000 ml 650 ml 250 ml # Bowel Movements 0 0 Physical Exam GENERAL: Well developed, well nourished. No acute distress. HEENT: Jugular venous pressure is normal. CHEST: Lungs clear to auscultation bilaterally. Unlabored respiratory effort. CARDIAC: Regular rate and rhythm without S3, S4, or murmur. ABDOMEN: Soft, nontender, no hepatosplenomegaly. Bowel sounds present. EXTREMITIES: No clubbing, cyanosis, tr edema. Laboratory Laboratory Tests Test 07/22/16 07/22/16 07/22/16 11:44 15:56 22:47 Troponin I 0.06 NG/ML 0.07 NG/ML Sodium Level 139 MEQ/L Potassium Level 3.8 MEQ/L Chloride Level 104 MEQ/L Carbon Dioxide Level 26.8 MEQ/L Anion Gap 8 MEQ/L Blood Urea Nitrogen 13 MG/DL Creatinine 1.00 MG/DL Estimat Glomerular Filtration 76 ML/MIN Rate Random Glucose 98 MG/DL Calcium Level 7.9 MG/DL Triglycerides Level 61 MG/DL Cholesterol Level 147 MG/DL LDL Cholesterol 107 MG/DL HDL Cholesterol 27.6 MG/DL Cholesterol/HDL Ratio 5.32 RATIO Thyroid Stimulating Hormone 0.579 uIU/ML 3rd Gen Urine Color YELLOW Urine Turbidity CLEAR Urine pH 5.5 Urine Specific [place] 1.020 Urine Protein 30 mg/dL Urine Glucose (UA) NEG mg/dL Urine Ketones NEG mg/dL Urine Occult Blood LARGE Urine Nitrite NEG Urine Bilirubin NEG Urine Urobilinogen LESS THAN 2.0 MG/DL Urine Leukocyte Esterase NEG Urine RBC 18 /hpf Urine WBC 3 /hpf Urine Squamous Epithelial <1 /hpf Cells Urine Mucus FEW /lpf Microscopic Urinalysis Comment CULT NOT INDICATED Assessment and Plan Assessment and Plan Hypertensive crisis - reasonable on present meds CHF acute systolic failure-l EF 35-40% by ECHO -HTN vs ischemia vs other - cath vs nuc discussed => nuc today if able to lay flat -BB and BRIANA -fluid and sodium cap Trop- elevated secondary to HTN, CHF, Renal insuff Nannette Wen MD July 23, 2016 08:28
[2016-07-23] MEDS ORDERED: POTASSIUM CHLORIDE 20 MEQ CONTROLLED RELEASE TAB PO SCH (09:00)
[2016-07-23] MEDS: FUROSEMIDE 40 MG TAB PO SCH ×2 (10:09→16:36)
[2016-07-23] MEDS: POTASSIUM CHLORIDE 20 MEQ CONTROLLED RELEASE TAB PO SCH ×2 (10:09→20:34)
--- NOTE | 2016-07-23 10:17 | RADRPT ---
EXAM DATE/TIME: 07/23/2016 09:59 [facility] COMPARISON: CHEST SINGLE AP, July 22, 2016, 3:42. INDICATIONS : Fever MEDICAL HISTORY : None. SURGICAL HISTORY : None. ENCOUNTER: Subsequent ACUITY: 2 days PAIN SCORE: 2/10 LOCATION: Bilateral chest FINDINGS: There is cardiomegaly. The lungs are clear. Degenerative changes of the spine are noted. CONCLUSION: No acute disease. Jorge A Webber MD on July 23, 2016 at 10:16 Board Certified Radiologist. This report was verified electronically.
[2016-07-23] MEDS ORDERED: REGADENOSON INJ 0.4 MG/5 ML SYR ONE (11:21)
[2016-07-23 11:29] LABS: AUTOMATED NEUTROPHIL # 7.3 TH/MM3 (1.8-7.7); BASOPHIL % 0.3 % (0.0-2.0); EOSINOPHIL # 0.1 TH/MM3 (0-0.4); EOSINOPHIL % 1.2 % (0.0-4.0); HEMATOCRIT 37.3 % (39.0-51.0); HEMO FLAGS DIFF FINAL; LYMPH % 18.8 % (9.0-44.0); MEAN CELL VOLUME 82.6 FL (80.0-100.0); MEAN CORPUSCULAR HEMOGLOBIN 26.3 PG (27.0-34.0); MEAN CORPUSCULAR HGB CONC 31.8 % (32.0-36.0); NEUT % 68.7 % (16.0-70.0); PLATELET COUNT 162 TH/MM3 (150-450); RED BLOOD COUNT 4.52 MIL/MM3 (4.50-5.90); WHITE BLOOD COUNT 10.6 TH/MM3 (4.0-11.0)
[2016-07-23 11:45] LABS: ALT (GPT) 20 U/L (12-78); ANION GAP 8 MEQ/L (5-15); AST (GOT) 18 U/L (15-37); BICARBONATE 28.8 MEQ/L (21.0-32.0); BLOOD UREA NITROGEN 19 MG/DL (7-18); CHLORIDE 101 MEQ/L (98-107); GLOMERULAR FILTRATION RATE 63 ML/MIN (>89); POTASSIUM 4.2 MEQ/L (3.5-5.1); SODIUM (NA) 138 MEQ/L (136-145)
[2016-07-23 11:48] LABS: ALKALINE PHOSPHATASE 66 U/L (45-117); TOTAL BILIRUBIN ADULT 0.9 MG/DL (0.2-1.0)
[2016-07-24] VITALS (24 sets, daily range): BP systolic 138–180; BP diastolic 78–91; PULSE 59–74; RESP 20; TEMP 98.2–99; O2SAT 95–96
[2016-07-24] MEDS: GENTAMICIN SULFATE 0.3% OPHT SOLN 5 ML BTL EACH EYE SCH ×5 (04:00→20:15)
[2016-07-24] MEDS: AZITHROMYCIN INJ 500 MG in SODIUM CHLOR 0.9% 250 ML INJ 250 ML IV SCH (04:12)
[2016-07-24] MEDS: cefTRIAXone INJ 1,000 MG in SODIUM CHLORIDE 0.9% INJ 100 ML IV SCH (05:08)
[2016-07-24] MEDS: guaiFENesin E.R. 600 MG TAB PO SCH ×2 (08:09→20:14)
[2016-07-24] MEDS: LISINOPRIL 10 MG TAB PO SCH (08:10)
[2016-07-24] MEDS: POTASSIUM CHLORIDE 20 MEQ CONTROLLED RELEASE TAB PO SCH ×2 (08:10→20:14)
[2016-07-24] MEDS: CARVEDILOL 6.25 MG TAB PO SCH ×2 (08:10→20:14)
[2016-07-24] MEDS: ASPIRIN 81 MG CHEW TAB CHEW SCH (08:11)
[2016-07-24] MEDS: FUROSEMIDE 40 MG TAB PO SCH ×2 (08:11→17:43)
[2016-07-24] MEDS: ENOXAPARIN SODIUM 40 MG/0.4 ML SYRINGE SQ SCH (08:11)
[2016-07-24] MEDS: SODIUM CHLORIDE 0.9% FLUSH 10 ML FLUSH IV FLUSH SCH ×2 (08:12→20:14)
[2016-07-24] MEDS: BUDESONIDE-FORMOTEROL 160/4.5 MCG INHALER INH SCH ×2 (08:12→20:15)
[2016-07-24 10:13] LABS: BICARBONATE 27.3 MEQ/L (21.0-32.0); POTASSIUM 4.1 MEQ/L (3.5-5.1)
--- NOTE | 2016-07-24 10:34 | PD.CARD.PN ---
Subjective Subjective Remarks Pt without complaints Objective Medications Current Medications Medications (Trade) Dose Ordered Sig/Fernando Route Start Time Stop Time Status Last Admin Ceftriaxone Sodium 1000 mg/ Sodium Chloride 100 ml @ 200 mls/hr Q24H IV 07/23/16 06:00 07/24/16 05:08 (Zithromax Inj/ NS 250 ml Inj) 250 ml @ 250 mls/hr Q24H IV 07/23/16 05:00 07/24/16 04:12 (Mucinex Er) 600 mg BID PO 07/22/16 09:00 07/24/16 08:09 (Symbicort 160-4.5 Inh) 2 puff Q12HR INH 07/22/16 09:00 07/24/16 08:12 (NS Flush) 2 ml UNSCH PRN IV FLUSH 07/22/16 04:45 (NS Flush) 2 ml BID IV FLUSH 07/22/16 09:00 07/24/16 08:12 (Zofran Inj) 4 mg Q6H PRN IVP 07/22/16 04:45 (Dulcolax Supp) 10 mg DAILY PRN RECTAL 07/22/16 04:45 (Tylenol) 650 mg Q6H PRN PO 07/22/16 04:45 07/22/16 21:41 ([place] 5-325 Mg) 1 tab Q4H PRN PO 07/22/16 04:45 (Morphine Inj) 2 mg Q3H PRN IV 07/22/16 04:45 (Lovenox Inj) 40 mg Q24H SQ 07/22/16 09:00 07/24/16 08:11 (Gentamicin Opht 0.3% Soln) 1 drop Q4HR EACH EYE 07/22/16 09:00 07/24/16 08:13 (Aspirin Chew) 81 mg DAILY CHEW 07/22/16 09:00 07/24/16 08:11 (Catapres) 0.1 mg Q6H PRN PO 07/22/16 13:15 07/22/16 21:41 (Prinivil) 10 mg Q12HR PO 07/22/16 21:00 07/24/16 08:10 (Coreg) 6.25 mg Q12HR PO 07/22/16 15:00 07/24/16 08:10 (Lasix) 40 mg BID@,18 PO 07/23/16 09:00 07/24/16 08:11 (KCl) 20 meq Q12HR PO 07/23/16 09:00 07/24/16 08:10 Vital Signs / I&O Vital Signs Date Time Temp Pulse Resp B/P Pulse Ox O2 Delivery O2 Flow Rate FiO2 07/24/16 09:33 95 21 07/24/16 09:00 67 07/24/16 09:00 148/88 07/24/16 08:00 96 Room Air 07/24/16 08:00 98.5 68 20 166/90 95 07/24/16 08:00 68 07/24/16 07:00 68 07/24/16 06:00 70 07/24/16 05:00 65 07/24/16 04:00 69 07/24/16 04:00 99.0 69 20 150/84 95 07/24/16 03:00 72 07/24/16 03:00 96 Room Air 07/24/16 02:00 71 07/24/16 01:00 67 07/24/16 00:00 74 07/23/16 23:00 70 07/23/16 23:00 98.1 70 20 159/89 94 07/23/16 23:00 96 Room Air 07/23/16 22:00 75 07/23/16 21:10 94 21 07/23/16 21:00 70 07/23/16 20:00 74 07/23/16 20:00 98.4 74 20 158/88 95 07/23/16 19:00 74 07/23/16 19:00 95 Room Air 07/23/16 18:00 76 07/23/16 17:00 70 07/23/16 17:00 Room Air 07/23/16 16:46 95 21 07/23/16 16:00 75 07/23/16 16:00 98.6 70 18 144/85 95 07/23/16 14:05 95 07/23/16 14:00 68 07/23/16 13:00 68 07/23/16 12:15 98.7 74 20 144/85 95 07/23/16 12:15 95 Room Air 07/23/16 11:00 76 I/O 07/23/16 07/23/16 07/23/16 07/24/16 07/24/16/22/17 07:00 15:00 23:00 07:00 15:00 23:00 Intake Total 970 ml 710 ml Output Total 250 ml 1850 ml Balance 720 ml -1140 ml Intake Oral 720 ml 360 ml IV Total 250 ml 350 ml Output Urine Total 250 ml 1850 ml # Bowel Movements 0 Physical Exam GENERAL: Well developed, well nourished. No acute distress. HEENT: Jugular venous pressure is normal. CHEST: Lungs clear to auscultation bilaterally. Unlabored respiratory effort. CARDIAC: Regular rate and rhythm without S3, S4, or murmur. ABDOMEN: Soft, nontender, no hepatosplenomegaly. Bowel sounds present. EXTREMITIES: No clubbing, cyanosis, tr edema. Laboratory Laboratory Tests Test 07/23/16 07/24/16 11:13 09:29 White Blood Count 10.6 TH/MM3 Red Blood Count 4.52 MIL/MM3 Hemoglobin 11.9 GM/DL Hematocrit 37.3 % Mean Corpuscular Volume 82.6 FL Mean Corpuscular Hemoglobin 26.3 PG Mean Corpuscular Hemoglobin 31.8 % Concent Red Cell Distribution Width 18.0 % Platelet Count 162 TH/MM3 Mean Platelet Volume 8.1 FL Neutrophils (%) (Auto) 68.7 % Lymphocytes (%) (Auto) 18.8 % Monocytes (%) (Auto) 11.0 % Eosinophils (%) (Auto) 1.2 % Basophils (%) (Auto) 0.3 % Neutrophils # (Auto) 7.3 TH/MM3 Lymphocytes # (Auto) 2.0 TH/MM3 Monocytes # (Auto) 1.2 TH/MM3 Eosinophils # (Auto) 0.1 TH/MM3 Basophils # (Auto) 0.0 TH/MM3 CBC Comment DIFF FINAL Differential Comment Sodium Level 138 MEQ/L 138 MEQ/L Potassium Level 4.2 MEQ/L 4.1 MEQ/L Chloride Level 101 MEQ/L 103 MEQ/L Carbon Dioxide Level 28.8 MEQ/L 27.3 MEQ/L Anion Gap 8 MEQ/L 8 MEQ/L Blood Urea Nitrogen 19 MG/DL 16 MG/DL Creatinine 1.18 MG/DL 1.05 MG/DL Estimat Glomerular Filtration 63 ML/MIN 72 ML/MIN Rate Random Glucose 96 MG/DL 85 MG/DL Calcium Level 8.3 MG/DL 8.4 MG/DL Total Bilirubin 0.9 MG/DL Aspartate Amino Transf 18 U/L (AST/SGOT) Alanine Aminotransferase 20 U/L (ALT/SGPT) Alkaline Phosphatase 66 U/L Total Protein 7.2 GM/DL Albumin 3.2 GM/DL Assessment and Plan Assessment and Plan Hypertension- crisis resolved -BP still a bit high, increase lisinopril CHF acute systolic failure-l EF 35-40% by ECHO -HTN vs ischemia vs other - nuc in process - snd part today -BB and BRIANA -fluid and sodium cap Trop- elevated secondary to HTN, CHF, Renal insuff Dispo- reasonable for d/c if no ischemia Nannette Wen MD July 24, 2016 10:34
[2016-07-24] MEDS ORDERED: LISINOPRIL 10 MG TAB PO ONE (10:45)
[2016-07-24] MEDS ORDERED: ATROPINE SULFATE 1 MG/10 ML SYRINGE ONE (10:57)
[2016-07-24] MEDS ORDERED: EPINEPHrine HCL (1:10,000) 1 MG/10 ML SYRINGE ONE (10:57)
--- NOTE | 2016-07-24 12:04 | RADRPT ---
EXAM DATE/TIME: 07/23/2016 11:47 [facility] COMPARISON: CHEST PA & LAT, July 23, 2016, 9:59. INDICATIONS : Dyspnea. Congestive heart failure. DOSE: 30 mCi Tc99m Myoview at stress. 30.1 mCi Tc99m Myoview at rest. 0.4 mg Lexiscan STRESS SYMPTOMS: Dyspnea. EJECTION FRACTION: 27% MEDICAL HISTORY : None SURGICAL HISTORY : Appendectomy. ENCOUNTER: Initial ACUITY: 2 days PAIN SCALE: 0/10 LOCATION: chest TECHNIQUE: The patient underwent pharmacologic stress with infusion of prescribed dose. Continuous ECG tracing was monitored during stress. Gated SPECT imaging was performed after stress and conventional SPECT i maging was performed at rest. The examination was performed on a SPECT/CT scanner, both attenuation and non-corrected datasets were reviewed. FINDINGS: DISTRIBUTION: The maximum perfused segment at stress is in the anterolateral wall. PERFUSION STUDY: Patchy left ventricle perfusion. No fixed or reversible perfusion defect is identified. SSS=0. GATED STUDY: There is global hypokinesia. Left ventricle is dilated. CONCLUSION: 1. No fixed or reversible perfusion defect is identified. 2. Left ventricle is dilated with abnormally reduced ejection fraction calculated at 27%. RISK CATEGORY: Intermediate (1-3% Annual Mortality Rate) Cameron Mota MD on July 24, 2016 at 11:54 Board Certified Radiologist. This report was verified electronically.
--- NOTE | 2016-07-24 14:22 | HHI.PR ---
Subjective Remarks no chest pains or shortness of breath- up and ambulating d/w compliance and OP ff up Objective Vitals Vital Signs Date Time Temp Pulse Resp B/P Pulse Ox O2 Delivery O2 Flow Rate FiO2 07/24/16 12:30 138/78 07/24/16 12:00 95 Room Air 07/24/16 12:00 98.6 68 20 152/86 95 07/24/16 12:00 67 07/24/16 10:00 71 07/24/16 09:33 95 21 07/24/16 09:00 67 07/24/16 09:00 148/88 07/24/16 08:00 96 Room Air 07/24/16 08:00 98.5 68 20 166/90 95 07/24/16 08:00 68 07/24/16 07:00 68 07/24/16 06:00 70 07/24/16 05:00 65 07/24/16 04:00 69 07/24/16 04:00 99.0 69 20 150/84 95 07/24/16 03:00 72 07/24/16 03:00 96 Room Air 07/24/16 02:00 71 07/24/16 01:00 67 07/24/16 00:00 74 07/23/16 23:00 70 07/23/16 23:00 98.1 70 20 159/89 94 07/23/16 23:00 96 Room Air 07/23/16 22:00 75 07/23/16 21:10 94 21 07/23/16 21:00 70 07/23/16 20:00 74 07/23/16 20:00 98.4 74 20 158/88 95 07/23/16 19:00 74 07/23/16 19:00 95 Room Air 07/23/16 18:00 76 07/23/16 17:00 70 07/23/16 17:00 Room Air 07/23/16 16:46 95 21 07/23/16 16:00 75 07/23/16 16:00 98.6 70 18 144/85 95 I/O 07/23/16 07/23/16 07/23/16 07/24/16 07/24/16 07/24/16 07:00 15:00 23:00 07:00 15:00 23:00 Intake Total 970 ml 710 ml Output Total 250 ml 1850 ml Balance 720 ml -1140 ml Intake Oral 720 ml 360 ml IV Total 250 ml 350 ml Output Urine Total 250 ml 1850 ml # Bowel Movements 0 Result Diagram: 07/23/16 1113 07/24/16 0929 Imaging Last Impressions Myocardial Perfusion Scan Nuc Med 07/23/16 0000 Signed Impressions: Service Date/Time: Saturday, July 23, 2016 11:47 - CONCLUSION: 1. No fixed or reversible perfusion defect is identified. 2. Left ventricle is dilated with abnormally reduced ejection fraction calculated at 27%%. RISK CATEGORY: Intermediate (1-3%% Annual Mortality Rate) Cameron Mota MD Chest X-Ray 07/23/16 0000 Signed Impressions: Service Date/Time: Saturday, July 23, 2016 09:59 - CONCLUSION: No acute disease. Jorge A Webber MD Objective Remarks awake and alert, oriented x 3, no acute distress OU- improved, no conjunctivae not injected lungs decrease breath sounds, no rhonchi, no wheezes regular rhythm abdomen- flabby soft, good bowel sounds no scrotal swelling trace pitting edema neuro exam non focal A/P Problem List: (1) CHF (congestive heart failure) ICD Code: I50.9 Status: Acute (2) PNA (pneumonia) ICD Code: J18.9 Status: Acute (3) Hypoxia ICD Code: R09.02 Status: Acute (4) Dehydration ICD Code: E86.0 Status: Acute (5) HTN (hypertension) ICD Code: I10 Status: Acute Assessment and Plan 61 years old male obese - denies chronic medical illness, non smoker with 2-3 weeks new onset on shortness of breath and leg swelling, orthopnea- was seen at [facility] ER about that time and sent home with inhalers and scripts- not filled, sounds like they ruled him out for DVT and was given some IV meds that "peed a lot" called EMS with difficulty breathing- - per report with diffuse rales, hypoxemic - placed on BiPAP, Lasix 100 mg IV initial EKG- sinus tachycardia Acute respiratory failure with hypoxemia secondary to acute pulmonary edema- received Lasix 100 mg IV enroute by EMS- good response with diuresis -RESOLved Hypertensive urgency presenting with acute Pulmonary edema- patient denies history of hypertension, DM or chronic medical illness initial !2 LEKG- showed sinus tachycardia LVH, LAD . CXR reviewed by me. repeat EKG now- sinus HR 80 Lasix 40 mg po bid KCL- 20 meq daily DC ISMO off BIPAP for myocardial perfusion study- seconda part pending Sepsis - PNA: CXR w/ pulmonary edema, likely underlying pulmonary infiltrates- T down +Febrile, +leukocytosis. S/p Blood Cultures, Rocephin/Zithro, Follow up cultures, continue w/ IV Abx. DuoNeb prn. change to po on DC GIA- monitor BMP on diuretics and BRIANA. I and O monitoring Acute conjunctivitis- OU- improved Antibacterial eye drops Obesity - BMI 41., counselled on weight reduction . Lovenox at DVT prophylaxis dose Problem Qualifiers (1) CHF (congestive heart failure): Qualified Code: I50.9 - Congestive heart failure, unspecified congestive heart failure chronicity, unspecified congestive heart failure type (2) PNA (pneumonia): Qualified Code: J18.9 - Pneumonia of both lungs due to infectious organism, unspecified part of lung Kameron Richey MD July 24, 2016 14:22 Kameron Richey MD July 24, 2016 14:22
[2016-07-24] MEDS ORDERED: Aspirin Chew CHEW (14:39)
[2016-07-24] MEDS ORDERED: POTA20TA5 PO (14:39)
[2016-07-24] MEDS ORDERED: FURO40TA PO (14:39)
[2016-07-24] MEDS ORDERED: SYMB160A INH (14:39)
[2016-07-24] MEDS ORDERED: LISI-515 PO (14:39)
[2016-07-24] MEDS ORDERED: CARV6.25 PO (14:39)
[2016-07-24] MEDS ORDERED: CEFT500T3 PO (14:41)
[2016-07-24] MEDS: LISINOPRIL 20 MG TAB PO SCH (20:14)
[2016-07-25] VITALS (10 sets, daily range): BP systolic 147–155; BP diastolic 90–99; PULSE 59–78; RESP 20; TEMP 98.3–98.4; O2SAT 96–97
[2016-07-25] MEDS: GENTAMICIN SULFATE 0.3% OPHT SOLN 5 ML BTL EACH EYE SCH ×3 (04:00→08:22)
[2016-07-25] MEDS: AZITHROMYCIN INJ 500 MG in SODIUM CHLOR 0.9% 250 ML INJ 250 ML IV SCH (06:21)
[2016-07-25] MEDS: cefTRIAXone INJ 1,000 MG in SODIUM CHLORIDE 0.9% INJ 100 ML IV SCH (06:21)
--- NOTE | 2016-07-25 07:33 | PD.CARD.PN ---
Subjective Subjective Remarks Pt without complaints Objective Medications Current Medications Medications (Trade) Dose Ordered Sig/Fernando Route Start Time Stop Time Status Last Admin Ceftriaxone Sodium 1000 mg/ Sodium Chloride 100 ml @ 200 mls/hr Q24H IV 07/23/16 06:00 07/25/16 06:21 (Zithromax Inj/ NS 250 ml Inj) 250 ml @ 250 mls/hr Q24H IV 07/23/16 05:00 07/25/16 06:21 (Mucinex Er) 600 mg BID PO 07/22/16 09:00 07/24/16 20:14 (Symbicort 160-4.5 Inh) 2 puff Q12HR INH 07/22/16 09:00 07/24/16 20:15 (NS Flush) 2 ml UNSCH PRN IV FLUSH 07/22/16 04:45 (NS Flush) 2 ml BID IV FLUSH 07/22/16 09:00 07/24/16 20:14 (Zofran Inj) 4 mg Q6H PRN IVP 07/22/16 04:45 (Dulcolax Supp) 10 mg DAILY PRN RECTAL 07/22/16 04:45 (Tylenol) 650 mg Q6H PRN PO 07/22/16 04:45 07/22/16 21:41 (Hood 5-325 Mg) 1 tab Q4H PRN PO 07/22/16 04:45 (Morphine Inj) 2 mg Q3H PRN IV 07/22/16 04:45 (Lovenox Inj) 40 mg Q24H SQ 07/22/16 09:00 07/24/16 08:11 (Gentamicin Opht 0.3% Soln) 1 drop Q4HR EACH EYE 07/22/16 09:00 07/25/16 04:00 (Aspirin Chew) 81 mg DAILY CHEW 07/22/16 09:00 07/24/16 08:11 (Catapres) 0.1 mg Q6H PRN PO 07/22/16 13:15 07/22/16 21:41 (Coreg) 6.25 mg Q12HR PO 07/22/16 15:00 07/24/16 20:14 (Lasix) 40 mg BID@09,18 PO 07/23/16 09:00 07/24/16 17:43 (KCl) 20 meq Q12HR PO 07/23/16 09:00 07/24/16 20:14 (Prinivil) 20 mg Q12HR PO 07/24/16 21:00 07/24/16 20:14 Vital Signs / I&O Vital Signs Date Time Temp Pulse Resp B/P Pulse Ox O2 Delivery O2 Flow Rate FiO2 07/25/16 05:00 69 07/25/16 04:17 59 07/25/16 04:00 98.4 64 20 154/99 96 07/25/16 03:04 96 Room Air 07/25/16 03:01 64 07/25/16 02:00 64 07/25/16 01:00 64 07/25/16 00:00 66 07/25/16 00:00 96 Room Air 07/25/16 00:00 98.4 66 20 155/99 96 07/24/16 23:00 68 07/24/16 22:00 72 07/24/16 21:00 64 07/24/16 20:00 98.2 74 20 180/91 96 07/24/16 20:00 95 Room Air 07/24/16 20:00 64 07/24/16 19:00 66 07/24/16 17:00 72 07/24/16 16:00 68 07/24/16 16:00 98.4 68 20 162/82 95 07/24/16 15:19 95 Room Air 07/24/16 15:00 60 07/24/16 14:00 61 07/24/16 13:00 59 07/24/16 12:30 138/78 07/24/16 12:00 95 Room Air 07/24/16 12:00 98.6 68 20 152/86 95 07/24/16 12:00 67 07/24/16 10:00 71 07/24/16 09:33 95 21 07/24/16 09:00 67 07/24/16 09:00 148/88 07/24/16 08:00 96 Room Air 07/24/16 08:00 98.5 68 20 166/90 95 07/24/16 08:00 68 I/O 07/24/16 07/24/16 07/24/16 07/25/16 07/25/16 07/25/16 07:00 15:00 23:00 07:00 15:00 23:00 Intake Total 710 ml 625 ml 240 ml Output Total 1850 ml 925 ml 750 ml Balance -1140 ml -300 ml -510 ml Intake Oral 360 ml 625 ml 240 ml IV Total 350 ml Output Urine Total 1850 ml 925 ml 750 ml # Bowel Movements 0 0 0 Physical Exam GENERAL: Well developed, well nourished. No acute distress. HEENT: Jugular venous pressure is normal. CHEST: Lungs clear to auscultation bilaterally. Unlabored respiratory effort. CARDIAC: Regular rate and rhythm without S3, S4, or murmur. ABDOMEN: Soft, nontender, no hepatosplenomegaly. Bowel sounds present. EXTREMITIES: No clubbing, cyanosis, tr edema. Laboratory Laboratory Tests Test 07/24/16 07/25/16 09:29 04:32 Sodium Level 138 MEQ/L Potassium Level 4.1 MEQ/L 5.1 MEQ/L Chloride Level 103 MEQ/L Carbon Dioxide Level 27.3 MEQ/L Anion Gap 8 MEQ/L Blood Urea Nitrogen 16 MG/DL Creatinine 1.05 MG/DL Estimat Glomerular Filtration 72 ML/MIN Rate Random Glucose 85 MG/DL Calcium Level 8.4 MG/DL Imaging Last 72 hours Impressions Myocardial Perfusion Scan Nuc Med 07/23/16 0000 Signed Impressions: Service Date/Time: Saturday, July 23, 2016 11:47 - CONCLUSION: 1. No fixed or reversible perfusion defect is identified. 2. Left ventricle is dilated with abnormally reduced ejection fraction calculated at 27%%. RISK CATEGORY: Intermediate (1-3%% Annual Mortality Rate) Cameron Mota MD Chest X-Ray 07/23/16 0000 Signed Impressions: Service Date/Time: Saturday, July 23, 2016 09:59 - CONCLUSION: No acute disease. Jorge A Webber MD Assessment and Plan Assessment and Plan Hypertension- crisis resolved -BP still a bit high, add amlodipine CHF acute systolic failure-l EF 35-40% by ECHO -HTN vs other, no ischemia on nuc -BB and BRIANA -fluid and sodium cap Trop- elevated secondary to HTN, CHF, Renal insuff -no ischemia on nuc Cardiomyopathy- pt aware he is high risk for sudden -No icd for at least 3 months on optimal meds -must establish compliance Dispo- reasonable for d/c if no ischemia Nannette Wen MD July 25, 2016 07:33
[2016-07-25] MEDS: ASPIRIN 81 MG CHEW TAB CHEW SCH (08:20)
[2016-07-25] MEDS: FUROSEMIDE 40 MG TAB PO SCH (08:20)
[2016-07-25] MEDS: ENOXAPARIN SODIUM 40 MG/0.4 ML SYRINGE SQ SCH (08:20)
[2016-07-25] MEDS: guaiFENesin E.R. 600 MG TAB PO SCH (08:20)
[2016-07-25] MEDS: POTASSIUM CHLORIDE 20 MEQ CONTROLLED RELEASE TAB PO SCH (08:21)
[2016-07-25] MEDS: LISINOPRIL 20 MG TAB PO SCH (08:21)
[2016-07-25] MEDS: SODIUM CHLORIDE 0.9% FLUSH 10 ML FLUSH IV FLUSH SCH (08:21)
[2016-07-25] MEDS: CARVEDILOL 6.25 MG TAB PO SCH (08:21)
[2016-07-25] MEDS: BUDESONIDE-FORMOTEROL 160/4.5 MCG INHALER INH SCH (08:22)
[2016-07-25] MEDS ORDERED: amLODIPine BESYLATE 5 MG TAB PO SCH (09:00)
--- NOTE | 2016-07-25 11:15 | HHI.PR ---
Subjective Remarks doing great no complains Objective Vitals Vital Signs Date Time Temp Pulse Resp B/P Pulse Ox O2 Delivery O2 Flow Rate FiO2 07/25/16 09:00 78 07/25/16 08:00 70 07/25/16 07:00 98.3 71 20 147/90 97 07/25/16 07:00 97 Room Air 07/25/16 07:00 69 07/25/16 05:00 69 07/25/16 04:17 59 07/25/16 04:00 98.4 64 20 154/99 96 07/25/16 03:04 96 Room Air 07/25/16 03:01 64 07/25/16 02:00 64 07/25/16 01:00 64 07/25/16 00:00 66 07/25/16 00:00 96 Room Air 07/25/16 00:00 98.4 66 20 155/99 96 07/24/16 23:00 68 07/24/16 22:00 72 07/24/16 21:00 64 07/24/16 20:00 98.2 74 20 180/91 96 07/24/16 20:00 95 Room Air 07/24/16 20:00 64 07/24/16 19:00 66 07/24/16 17:00 72 07/24/16 16:00 68 07/24/16 16:00 98.4 68 20 162/82 95 07/24/16 15:19 95 Room Air 07/24/16 15:00 60 07/24/16 14:00 61 07/24/16 13:00 59 07/24/16 12:30 138/78 07/24/16 12:00 95 Room Air 07/24/16 12:00 98.6 68 20 152/86 95 07/24/16 12:00 67 I/O 07/24/16 07/24/16 07/24/16 07/25/16 07/25/16 07/25/16 07:00 15:00 23:00 07:00 15:00 23:00 Intake Total 710 ml 625 ml 240 ml Output Total 1850 ml 925 ml 750 ml Balance -1140 ml -300 ml -510 ml Intake Oral 360 ml 625 ml 240 ml IV Total 350 ml Output Urine Total 1850 ml 925 ml 750 ml # Bowel Movements 0 0 0 Result Diagram: 07/23/16 1113 07/25/16 0432 Imaging Last Impressions Myocardial Perfusion Scan Nuc Med 07/23/16 0000 Signed Impressions: Service Date/Time: Saturday, July 23, 2016 11:47 - CONCLUSION: 1. No fixed or reversible perfusion defect is identified. 2. Left ventricle is dilated with abnormally reduced ejection fraction calculated at 27%%. RISK CATEGORY: Intermediate (1-3%% Annual Mortality Rate) Cameron Mota MD Chest X-Ray 07/23/16 0000 Signed Impressions: Service Date/Time: Saturday, July 23, 2016 09:59 - CONCLUSION: No acute disease. Jorge A Webber MD Objective Remarks awake and alert, oriented x 3, no acute distress OU- improved, no conjunctivae not injected lungs decrease breath sounds, no rhonchi, no wheezes regular rhythm abdomen- flabby soft, good bowel sounds no scrotal swelling trace pitting edema neuro exam non focal A/P Problem List: (1) CHF (congestive heart failure) ICD Code: I50.9 Status: Acute (2) PNA (pneumonia) ICD Code: J18.9 Status: Acute (3) Hypoxia ICD Code: R09.02 Status: Acute (4) Dehydration ICD Code: E86.0 Status: Acute (5) HTN (hypertension) ICD Code: I10 Status: Acute Assessment and Plan 61 years old male obese - denies chronic medical illness, non smoker with 2-3 weeks new onset on shortness of breath and leg swelling, orthopnea- was seen at [facility] ER about that time and sent home with inhalers and scripts- not filled, sounds like they ruled him out for DVT and was given some IV meds that "peed a lot" called EMS with difficulty breathing- Acute respiratory failure with hypoxemia secondary to acute pulmonary edema- received Lasix 100 mg IV enroute by EMS- good response with diuresis -RESOLved Hypertensive urgency presenting with acute Pulmonary edema- patient denies history of hypertension, DM or chronic medical illness Cardiomyopathy low EF no ischemia. continue diuretics. coreg, BRIANA BPimproved maximize medical management- may eventually need AICD d/w him to monitor BP and set up with PCP for med adjustment Sepsis - PNA: CXR w/ pulmonary edema, likely underlying pulmonary infiltrates- T down +Febrile, +leukocytosis. S/p Blood Cultures, Rocephin/Zithro, Follow up cultures, continue w/ IV Abx. DuoNeb prn. change to po today GIA- resolved Acute conjunctivitis- OU- improved Antibacterial eye drops Obesity - BMI 41., counselled on weight reduction . Lovenox at DVT prophylaxis dose DC home today Problem Qualifiers (1) CHF (congestive heart failure): Qualified Code: I50.9 - Congestive heart failure, unspecified congestive heart failure chronicity, unspecified congestive heart failure type (2) PNA (pneumonia): Qualified Code: J18.9 - Pneumonia of both lungs due to infectious organism, unspecified part of lung Kameron Richey MD July 25, 2016 11:14
[2016-07-25] MEDS ORDERED: AMLO5 PO (11:21)
--- NOTE | 2016-07-25 11:21 | HHI.DS ---
Discharge Summary Admission Date July 22, 2016 at 04:42 Discharge Date: July 25, 2016 Admitting Diagnosis CHF, PNA (1) CHF (congestive heart failure) ICD Code: I50.9 Diagnosis: Principal (2) PNA (pneumonia) ICD Code: J18.9 Diagnosis: Secondary (3) Hypoxia ICD Code: R09.02 Diagnosis: Secondary (4) Dehydration ICD Code: E86.0 (5) HTN (hypertension) ICD Code: I10 Diagnosis: Principal Procedures none Brief History - From Admission This is a 61-year-old male with no reported PMH as he does not follow with physicians who was brought to the ER by EMS secondary to SOB, noted to have O2 sat 80% on RA upon EMS arrival. Started on CPAP and given Lasix IV en route to ER w/ some improvement. On arrival, BP 196/116, HR 119, O2 sat 99% on BiPAP, Temp 101.3. WBC 16.2. Chemistry essentially unremarkable except for GFR 60. BNP 451. INR 1.1. CXR with cardiomegaly, questionable early changes of pulmonary edema, also noted to have some likely infiltrate. Started on Nitro gtt for BP control, remains on BIPAP, good urinary output after diuresis. S/p Blood Cultures, Rocephin/Zithro in ER. CBC/BMP: 07/23/16 1113 07/25/16 0432 Significant Findings Laboratory Tests Test 07/22/16 07/22/16 07/22/16 07/23/16 11:44 15:56 22:47 11:13 Troponin I 0.06 NG/ML 0.07 NG/ML (0.02-0.05) (0.02-0.05) Estimat Glomerular Filtration 76 ML/MIN (>89) 63 ML/MIN (>89) Rate Calcium Level 7.9 MG/DL 8.3 MG/DL (8.5-10.1) (8.5-10.1) LDL Cholesterol 107 MG/DL (0-99) HDL Cholesterol 27.6 MG/DL (40.0-60.0) Urine Protein 30 mg/dL (NEG-TRACE) Urine Occult Blood LARGE (NEG) Urine RBC 18 /hpf (0-3) Urine Mucus FEW /lpf (OCC) Hemoglobin 11.9 GM/DL (13.0-17.0) Hematocrit 37.3 % (39.0-51.0) Mean Corpuscular Hemoglobin 26.3 PG (27.0-34.0) Mean Corpuscular Hemoglobin 31.8 % Concent (32.0-36.0) Red Cell Distribution Width 18.0 % (11.6-17.2) Monocytes (%) (Auto) 11.0 % (0.0-8.0) Monocytes # (Auto) 1.2 TH/MM3 (0-0.9) Blood Urea Nitrogen 19 MG/DL (7-18) Albumin 3.2 GM/DL (3.4-5.0) Test 07/24/16 09:29 Estimat Glomerular Filtration 72 ML/MIN (>89) Rate Calcium Level 8.4 MG/DL (8.5-10.1) Imaging Last Impressions Myocardial Perfusion Scan Nuc Med 07/23/16 0000 Signed Impressions: Service Date/Time: Saturday, July 23, 2016 11:47 - CONCLUSION: 1. No fixed or reversible perfusion defect is identified. 2. Left ventricle is dilated with abnormally reduced ejection fraction calculated at 27%%. RISK CATEGORY: Intermediate (1-3%% Annual Mortality Rate) Cameron Mota MD Chest X-Ray 07/23/16 0000 Signed Impressions: Service Date/Time: Saturday, July 23, 2016 09:59 - CONCLUSION: No acute disease. Jorge A Webber MD PE at Discharge awake and alert, oriented x 3, no acute distress OU- improved, no conjunctivae not injected lungs decrease breath sounds, no rhonchi, no wheezes regular rhythm abdomen- flabby soft, good bowel sounds no scrotal swelling trace pitting edema neuro exam non focal Pt update on day of discharge feels great, no chest pains or shortness of breath, trace pitting edema good sats at room air and during ambulation Hospital Course 61 years old male obese - denies chronic medical illness, non smoker with 2-3 weeks new onset on shortness of breath and leg swelling, orthopnea- was seen at [facility] ER about that time and sent home with inhalers and scripts- not filled, sounds like they ruled him out for DVT and was given some IV meds that "peed a lot" called EMS with difficulty breathing- Acute respiratory failure with hypoxemia secondary to acute pulmonary edema- received Lasix 100 mg IV enroute by EMS- good response with diuresis -RESOLved Hypertensive urgency presenting with acute Pulmonary edema- patient denies history of hypertension, DM or chronic medical illness Cardiomyopathy low EF no ischemia. continue diuretics. coreg, BRIANA BPimproved maximize medical management- may eventually need AICD d/w him to monitor BP and set up with PCP for med adjustment Sepsis - PNA: CXR w/ pulmonary edema, likely underlying pulmonary infiltrates- T down +Febrile, +leukocytosis. S/p Blood Cultures, Rocephin/Zithro, Follow up cultures, continue w/ IV Abx. DuoNeb prn. change to po today GIA- resolved Acute conjunctivitis- OU- improved Antibacterial eye drops Obesity - BMI 41., counselled on weight reduction . Lovenox at DVT prophylaxis dose DC home today Pt Condition on Discharge: Stable Discharge Disposition: Discharge Home Discharge Time: <= 30 minutes Discharge Instructions DIET: Follow Instructions for: Heart Healthy Diet, Low Sodium Diet Speech Therapy-Diet Recommends: Regular Activities you can perform: Weight Bearing as Norma Activities to Avoid: Strenuous Activity Follow up Referrals: Cardiology - 1 Week with John PCP Follow-up - 07/27/16 with Lenny New Orders: BASIC METABOLIC PROF - 07/27/16 New Medications: Cefuroxime (Ceftin) 500 Mg Tab 500 MG PO BID Infection Days 5 Ref 0 TAB Budesonide-Formoterol Inh (Symbicort Inh) 160-4.5 Mcg/Act Aero 2 PUFF INH Q12HR RESP #1 Ref 1 INHALER Carvedilol (Coreg) 6.25 Mg Tab 6.25 MG PO Q12HR CMP Days 30 TAB Furosemide (Furosemide) 40 Mg Tab 40 MG PO BID@09,18 CMP Days 30 TAB Lisinopril (Lisinopril) 20 Mg Tab 20 MG PO Q12HR CMP Days 30 TAB ([Aspirin Chew]) 81 MG CHEW 81 MG CHEW DAILY 30 TAB.Kameron Gonzáles MD July 25, 2016 11:21
== END 2016-07-25 12:31 | disposition home or self-care (01) | DRG 871 ==
LOC: NEPE 03:26 → NEDA 04:42 → HCIN 06:12
PROVIDERS: ADMIT Internal Medicine; ATTEND Internal Medicine
DX: A41.9 Sepsis, unspecified organism (principal); J18.9 Pneumonia, unspecified organism; J96.01 Acute respiratory failure with hypoxia; I50.21 Acute systolic (congestive) heart failure; N17.9 Acute kidney failure, unspecified; I42.9 Cardiomyopathy, unspecified; I11.0 Hypertensive heart disease with heart failure; Z68.41 Body mass index [BMI] 40.0-44.9, adult; I16.9 Hypertensive crisis, unspecified; E86.0 Dehydration; I16.0 Hypertensive urgency; E66.9 Obesity, unspecified; H10.30 Unspecified acute conjunctivitis, unspecified eye
CPT/HCPCS: 71010; 71020; 78452; 80048; 80053; 80061; 81001; 82550; 82552; 83735; 83880; 84132; 84443; 84484; 85025; 85610; 85730; 87040; 93005; 93017; 93306; 94002; 96365; A9502; J0171; J0456; J0461; J0696; J1650; J2785; J7050